=== PATIENT | female | born 1985 | race Caucasian/White ===

== ENCOUNTER 2023-08-18 14:29 | Inpatient (IN) | payer OTHER, SELFPAY ==
[2023-08-18] VITALS (24 sets, daily range): BP systolic 79–211; BP diastolic 50–146; BMI 20.3
--- NOTE | 2023-08-18 10:51 | ED.GENMED ---
Addendum entered and electronically signed by Ludin Swenson MD 08/18/23 15:48:
Patient became severely hypotensive bradycardic at the end of the echocardiogram. Diaphoretic. No chest pain or shortness of breath. Cardene has been stopped. Fluids were started wide open. Patient was lied prone. Symptoms slowly improved
while lying prone. Repeat EKG was a sinus bradycardia with A-V dissociation. Right bundle branch block. Diffuse T wave changes. EKG was sent to cardiology. Hospitalist also notified. Patient rechecked multiple times. Blood pressure last was
123/77. Heart rate still 60. Again no chest pain or shortness of breath.
additional CC=15 minutes
Addendum entered and electronically signed by GISSELLE Tracy 08/18/23 15:16:
Called to patient's room by nurse patient was found hypotensive bradycardic diaphoretic pale. Patient apparently started vomiting while echocardiogram was being done. Nifedipine drip was stopped by nurse prior to my arrival and patient was given
bolus of fluids. Patient was given Zofran blood pressure improving. ED physician called to bedside
Original Note:
History of Present Illness
<GISSELLE Tracy - Last Filed: 08/18/23 12:52>
General
Chief Complaint: Blood Pressure Problem
Source: patient
Exam Limitations: none
Time Seen by Provider: 08/18/23 10:49
Nursing documentation reviewed up to this point in time: agreed with
Travel History
Have you had any contact with someone who has COVID-19?: No
Do you have any symptoms of coronavirus? Fever > 100 degrees, chills, cough, shortness of breath, sore throat, loss of taste or smell, muscle aches, or headache?: No
History of Present Illness
History of Present Illness:
Patient is a 37-year-old female with history of of untreated hypertension resents to the ER for evaluation. Patient reports she has not felt right over the past several days. She reports on [place] she felt weak and felt just off. Since then she
has also noticed that her right arm feels slightly weaker her signatures often when she holds her coffee cup or a mug she feels some weakness. She reports her arm feels heavy. She did take her blood pressure because of the on Wednesday and it was
180/140 and it was also elevated yesterday. She has had no associated headache. she has a history of hypertension for years but has not taken her medicine in the past several years.
She denies any chest pain. At times she does feel short winded. This however is not new.
She is a smoker.
Past History
<GISSELLE Tracy - Last Filed: 08/18/23 12:52>
Past History
ED Past Medical History: HTN
ED Past Surgical History: Gynecological
Social History
Tobacco: Smoker
Alcohol: None
Drug: None
Personal: Single
Living: with family
Review of Systems
<GISSELLE Tracy - Last Filed: 08/18/23 12:52>
Review of Systems
Allergies reviewed?: Yes
All Other Systems: ROS reviewed and negative except as documented in HPI and ROS
Constitutional: Reports no symptoms; Denies fever, fatigue or chills
EENT: Reports no symptoms
Respiratory: Reports no symptoms
Cardiac: Reports no symptoms; Denies chest pain
ABD/GI: Reports no symptoms
Skin: Reports no symptoms
Neurological: Reports other (Right-sided weakness); Denies dizzy or headache
Psychiatric: Reports no symptoms
Phy Exam
<GISSELLE Tracy - Last Filed: 08/18/23 12:52>
General Physical Exam
General Presentation: no apparent distress
General age: appears stated age
General Skin: warm and dry
General Habitus: normal
General Mental: alert
Cardiovascular Exam
Cardiovascular Exam: regular rate/rhythm, normal peripheral pulses and tachycardia
Pulmonary Exam
Pulmonary Exam: lungs clear and no respiratory distress
Neurological Exam
Neurological Exam: alert and oriented x3
NIH Stroke Score
Level of Consciousness: 0 - Alert
LOC questions: 0-Answers both correctly
LOC Commands: 0-Performs both correctly
Best Gaze: 0-Normal
Visual Garcia: 0=Normal, no visual loss
Facial palsy: 0=Normal, symmetrical
Motor - Right Arm: 1=Drift < 10 seconds
Motor - Left Arm: 0=No drift 10 seconds
Motor - Right Le-No drift 5 seconds
Motor - Left Le-No drift 5 seconds
Limb Ataxia: 0-Absent
Sensation: 0-Normal
Best Language: 0-No aphasia
Dysarthria: 0-Normal
Extinction and Inattention: 0-No abnormality
Total Score:: 1
Robbi Coma Scale
Eye Opening: Spontaneous
Verbal Response: Oriented
Motor Response: Obeys Commands
GCS Total Score: 15
Musculoskeletal Exam
Musculoskeletal Exam: full ROM
Skin Exam
Skin Exam: normal color and warm/dry
Psychiatric Exam
Psychiatric Exam: normal mood/affect
<Ludin Swenson MD - Last Filed: 08/18/23 13:13>
NIH Stroke Score
Total Score:: 1
[place] Coma Scale
GCS Total Score: 15
Course
<GISSELLE Tracy - Last Filed: 08/18/23 12:52>
Orders/Labs/Results
Orders:
Orders
08/18/23 11:04
Electrocardiogram (*1) Stat
Reason for Study: Other
Other Reason for Exam: chest pain
CT Head W/o Iv Contrast Urgent
Comment:
Reason For Exam: right sided weakness
Cardiac Monitoring- Treatment ONCE
EKG- Treatment ONCE
IV Insert/Care/Rem.- Treatment PRN
08/18/23 11:09
Complete Blood Count/With Diff Urgent
Comprehensive Metabolic Panel Urgent
DDimer [D-Dimer] Urgent
HCG, Serum Qualitative Screen Urgent
Comment: ADDED
Troponin I Urgent
08/18/23 11:24
Nicardipine 40 mg/200 ml [Cardene] 40 mg in 200 ml IV NOW
Initial dose in mg/hr, then titrate:: 5
Titrate to keep:: BP < 180/105 mmHg
Titrate by mg/hr:: 2.5 mg/hr
Frequency of titrations (minutes):: 5-15 minutes
Maximum dose in mg/hr:: 15
Begin to taper infusion when:: Remained at goal for 2hrs
Taper by mg/hr:: 2.5 mg/hr
Frequency of taper (minutes) if patient maintains goal:: 15-30 minutes
Taper to off?: Yes
If infusion off & no longer maintaining goal:: Contact Provider
08/18/23 11:45
Add On- LAB Urgent
Tests Added?: hcg qualitative
08/18/23 12:32
Aspirin 325 mg PO NOW STA
Clopidogrel Bisulfate [Plavix] 300 mg PO NOW STA
NIH Stroke Scale As Directed
Directions: Per protocol
Neurological Checks As Directed
Frequency: Per unit guidelines
08/18/23 12:33
MA [place] [facility] Routine
Comment:
Reason For Exam: intracranial stenosis
Recent pill cam endoscopy?: No
MA Neck With Contrast Routine
Reason For Exam: stenosis
Recent pill cam endoscopy?: No
MR Brain Without Contrast Routine
Comment: Eval for left sided stroke or PRES
Reason For Exam: Right arm leg weakness, extreme HTN
Recent pill cam endoscopy?: No
08/18/23 13:01
Echo 2D MMode Color/Doppler Urgent
Reason for Study: hypertensive emergency
08/18/23 13:07
CARDIOLOGY CONSULT Routine
Consulting Provider: Sage Way
Was physician already notified: Yes
Reason for consult: LVH, hypertensive emergency
NEUROLOGY CONSULT Routine
Consulting Provider: Sharif Bui
Was physician already notified: Yes
Reason for consult: RUE weakness
08/19/23 08:00
Aspirin Low Dose EC [Aspir Low (Enteric Coated)] 81 mg PO DAILY
Clopidogrel Bisulfate [Plavix] 75 mg PO DAILY
Abnormal Lab Results
08/18/23
11:09
RBC 5.67 H 10^6/uL
(4.20-5.40)
MCV 72.0 L fL
(81.0-99.0)
MCH 22.9 L pg
(27.0-31.0)
MCHC 31.9 L g/dL
(33.0-37.0)
RDW 17.7 H %
(11.5-14.5)
Plt Count 465 H 10^3/uL
(130-400)
Absolute Monos (auto) 0.8 H 10^3/uL
(0.1-0.6)
BUN 18 H mg/dl
(7-17)
Total Protein 6.1 L g/dl
(6.3-8.2)
08/18/23 11:09
08/18/23 11:09
Vital Signs
Initial and Last Documented VS:
Initial Vital Signs
Temp Pulse Resp BP Pulse Ox
98.3 F 110 18 211/140 98
08/18/23 10:41 08/18/23 10:41 08/18/23 10:41 08/18/23 10:41 08/18/23 10:41
Last Documented Vital Signs
Temp Pulse Resp BP Pulse Ox
98.3 F 107 26 172/118 98
08/18/23 10:41 08/18/23 12:45 08/18/23 12:45 08/18/23 12:15 08/18/23 10:41
Gaming Dealer consulted with Physician
Gaming Dealer consulted with physician?: Yes
Name of Physician Consulted: Messi
<Ludin Swenson MD - Last Filed: 08/18/23 13:13>
Orders/Labs/Results
Orders:
Orders
08/18/23 11:04
Electrocardiogram (*1) Stat
Reason for Study: Other
Other Reason for Exam: chest pain
CT Head W/o Iv Contrast Urgent
Comment:
Reason For Exam: right sided weakness
Cardiac Monitoring- Treatment ONCE
EKG- Treatment ONCE
IV Insert/Care/Rem.- Treatment PRN
08/18/23 11:09
Complete Blood Count/With Diff Urgent
Comprehensive Metabolic Panel Urgent
DDimer [D-Dimer] Urgent
HCG, Serum Qualitative Screen Urgent
Comment: ADDED
Troponin I Urgent
08/18/23 11:24
Nicardipine 40 mg/200 ml [Cardene] 40 mg in 200 ml IV NOW
Initial dose in mg/hr, then titrate:: 5
Titrate to keep:: BP < 180/105 mmHg
Titrate by mg/hr:: 2.5 mg/hr
Frequency of titrations (minutes):: 5-15 minutes
Maximum dose in mg/hr:: 15
Begin to taper infusion when:: Remained at goal for 2hrs
Taper by mg/hr:: 2.5 mg/hr
Frequency of taper (minutes) if patient maintains goal:: 15-30 minutes
Taper to off?: Yes
If infusion off & no longer maintaining goal:: Contact Provider
08/18/23 11:45
Add On- LAB Urgent
Tests Added?: hcg qualitative
08/18/23 12:32
Aspirin 325 mg PO NOW STA
Clopidogrel Bisulfate [Plavix] 300 mg PO NOW STA
NIH Stroke Scale As Directed
Directions: Per protocol
Neurological Checks As Directed
Frequency: Per unit guidelines
08/18/23 12:33
MA [place] [facility] Routine
Comment:
Reason For Exam: intracranial stenosis
Recent pill cam endoscopy?: No
MA Neck With Contrast Routine
Reason For Exam: stenosis
Recent pill cam endoscopy?: No
MR Brain Without Contrast Routine
Comment: Eval for left sided stroke or PRES
Reason For Exam: Right arm leg weakness, extreme HTN
Recent pill cam endoscopy?: No
08/18/23 13:01
Echo 2D MMode Color/Doppler Urgent
Reason for Study: hypertensive emergency
08/18/23 13:07
CARDIOLOGY CONSULT Routine
Consulting Provider: Sage Way
Was physician already notified: Yes
Reason for consult: LVH, hypertensive emergency
NEUROLOGY CONSULT Routine
Consulting Provider: Sharif Bui
Was physician already notified: Yes
Reason for consult: RUE weakness
08/19/23 08:00
Aspirin Low Dose EC [Aspir Low (Enteric Coated)] 81 mg PO DAILY
Clopidogrel Bisulfate [Plavix] 75 mg PO DAILY
Abnormal Lab Results
08/18/23
11:09
RBC 5.67 H 10^6/uL
(4.20-5.40)
MCV 72.0 L fL
(81.0-99.0)
MCH 22.9 L pg
(27.0-31.0)
MCHC 31.9 L g/dL
(33.0-37.0)
RDW 17.7 H %
(11.5-14.5)
Plt Count 465 H 10^3/uL
(130-400)
Absolute Monos (auto) 0.8 H 10^3/uL
(0.1-0.6)
BUN 18 H mg/dl
(7-17)
Total Protein 6.1 L g/dl
(6.3-8.2)
08/18/23 11:09
08/18/23 11:09
Vital Signs
Initial and Last Documented VS:
Initial Vital Signs
Temp Pulse Resp BP Pulse Ox
98.3 F 110 18 211/140 98
08/18/23 10:41 08/18/23 10:41 08/18/23 10:41 08/18/23 10:41 08/18/23 10:41
Last Documented Vital Signs
Temp Pulse Resp BP Pulse Ox
98.3 F 107 26 172/118 98
08/18/23 10:41 08/18/23 12:45 08/18/23 12:45 08/18/23 12:15 08/18/23 10:41
<GISSELLE Tracy - Last Filed: 08/18/23 12:52>
MDM/Problems Addressed
Differential Diagnosis Includes:
Not limited to hypertensive urgency stroke
MDM/Problems Addressed:
Patient is a 29-year-old female with untreated hypertension for years who presents to the ER for evaluation of elevated blood pressure and right-sided weakness. For the past several days patient has noticed that her right arm seem very heavy she
had difficulty opening a door holding a coffee mug and writing her signature. She denies any headache. She presents hypertensive mildly tachycardic no complaints of chest pain mildly short of breath off and on. Patient is a smoker. No known
cardiac history. Patient currently does not have a family doctor and as document has not taken medication for blood pressure in years. She presents awake alert by ED physician slight questionable drift in right upper extremity. Patient has
changes on EKG including new LVH and a new left bundle branch block. Patient was eval by ED physician and spoke with cardiology as well as nephrology and nifedipine IV was recommended and started. I did review case with neurology Dr. Ramya duron
ordered if neg will start aspirin Plavix.
1250: CT negative aspirin Plavix ordered by neurology who evaluated patient
Chronic conditions affecting care:
Untreated hypertension, smoker
<GISSELLE Tracy - Last Filed: 08/18/23 12:52>
*Radiology
Radiology exam reviewed: radiology read reviewed
*Pulse Oximetry
Patient hypoxic: no
*EKG
Interpreted by ED Provider?: Yes
Interpretation: abnormal
Comparison EKG: changes noted
Heart Rate: 93
Rate: normal
Rhythm: sinus
[place]: left axis deviation
QRS Pattern: left bundle branch block and left vent hypertrophy
Ischemia: no ischemia
*Critical Care Note
Total Time (30-74mins, 75-104mins- exclusive of procedures): Not Applicable
comment:
Critical care statement: A total of 30 minutes of critical care time was provided for this patient. This includes management of unstable vital signs, evaluation of the patient at bedside, reviewing the patient's pertinent medical records, discussion
with consultants, review of old EKGs and review of pertinent medical records. This time with separate from time utilized to perform the aforementioned documented procedures
<GISSELLE Tracy - Last Filed: 08/18/23 12:52>
Patient Management
Discussion with other providers: Plant Clerk (Neurology cardiology and nephro)
ED Attending Note
<GISSELLE Tracy - Last Filed: 08/18/23 12:52>
-
Portions of this chart may have been created with voice recognition software.� Occasional wrong word or��sound alike� substitutions may have occurred due to the inherent limitations of voice recognition software.
<Ludin Swenson MD - Last Filed: 08/18/23 13:13>
ED Attending Note
Patient seen and examined by attending physician: Yes
I performed the substantive portion of visit, reviewed & personally made and approve the management plan that is documented in note by myself or DAIVD.: Yes
ED Attending Note:
37-year-old female major complaint is some incoordination and weakness of the right arm x 2 days. No headache no visual issues no speech issues no gait issues. No history of same. Patient has a history of hypertension but is not compliant with
medications.
On exam patient is nontoxic in no distress. Significant hypertension. Borderline tachycardia. Speech normal. Questionable minimal right facial droop. Slight right arm drift. Minimal poor [id number] on the right. The rest of the neurologic
exam is unremarkable.
Heart regular rate and rhythm borderline tachycardia. Lungs clear and equal. She is warm and dry and perfusing well.
Impression is hypertensive emergency with symptoms consistent with a recent CVA. In addition new left bundle branch block and significant left ventricular hypertrophy by EKG. Discussed with cardiology and neurology. Cardene drip started. If the
head CT is negative we will start aspirin and Plavix. Admission for further care. Lengthy discussion with the patient
Critical care:45
Discharge Plan
Departure
Patient Disposition: Admit
Date of Disposition: 08/18/23
Time of Disposition: 12:51
Admit to: ICU
Admit to doctor: Osiris
Presentation/result/management discussed w/ accepting MD/DO: Hospitalist
Patient with high blood pressure during this ER visit?: Yes
Condition: Fair
Covid-19: Not Applicable
Discharge Problem:
Hypertensive emergency
Prescriptions:
No Action
acetaminophen [Tylenol Extra Strength] 500 mg Tablet
1,000 mg PO Q6HPRN PRN (Reason: mild pain)
Referrals:
Sabino Davis MD [Family Provider] -
Interventions
Interventions:
*Risk Screen - Suicide Last Done: 08/18/23 10:41
*General Assessment Last Done: 08/18/23 10:41
*Neglect/Abuse Screening Last Done: 08/18/23 10:41
ED- Fall Risk Assessment Last Done: 08/18/23 11:02
*ED COVID-19 Vaccine History Last Done: 08/18/23 10:59
ED- Cardiac Assessment Last Done: 08/18/23 11:02
ED- Neurological Assessment Last Done: 08/18/23 11:02
ED- Pulmonary Assessment Last Done: 08/18/23 11:02
Discharge Date and Time
Print Language: ALBANIAN
[2023-08-18 11:26] LABS: % Eosinophils 0.7 % (0-6); % Immature Granulocytes 0.2 % (0-0.5); % Lymphocytes 25.5 % (20.5-51.1); % Monocytes 8.3 % (1.7-9.3); % Neutrophils 64.3 % (42.2-75.2); Absolute Basophils 0.1 10^3/uL (0-0.2); Absolute Eosinophils 0.1 10^3/uL (0-0.7); Absolute Lymphocytes 2.3 10^3/uL (1.2-3.4); Absolute Monocytes 0.8 10^3/uL (0.1-0.6); Absolute Neutrophils 5.8 10^3/uL (1.4-6.5); Hematocrit 40.8 % (37.0-47.0); Mean Corp Hgb Conc. 31.9 g/dL (33.0-37.0); Mean Corpuscular Hgb 22.9 pg (27.0-31.0); Mean Platelet Volume 9.6 fL (7.4-10.4); Nucleated Red Blood Cells % 0 %; Platelet Count 465 10^3/uL (130-400); Red Blood Cell Count 5.67 10^6/uL (4.20-5.40); Red Cell Dist. Width 17.7 % (11.5-14.5)
[2023-08-18] MEDS: CARDENE 200 IV (11:32)
[2023-08-18 11:33] LABS: D-Dimer 0.31 ug/mlFEU (0.00-0.50)
--- NOTE | 2023-08-18 11:34 | CON.NEURO4 ---
Consultation - Neurology 4
-
CONSULTING PHYSICIAN: Pacheco Bui
REFERRING PHYSICIAN: ER
DICTATED BY: Pacheco Bui
DATE/TIME OF REQUEST: 08/18/23
DATE/TIME OF CONSULTATION: 08/18/23
Reason for Consultation: Hypertension, right arm weakness
History of Present Illness:
The patient is a right handed 37-year-old woman with past medical history of uncontrolled hypertension presenting the hospital with right arm and leg weakness beginning on Wednesday afternoon along with feeling unwell in general. Blood pressure was
elevated at home to range of 180/140. Chest pain or dyspnea. Not taking blood pressure medications. She had been on aspirin during previous but does not take this is a chronic medication.
The weakness of the right arm and unusual feeling began suddenly on Wednesday afternoon. She had woken up that morning feeling fine. Describes the right arm is feeling like it is underwater and somewhat weak and incoordinated not feeling normal. Has
had no changes in speech or vision or numbness on the face. Has similar degree of unusual feeling in the right leg. No recent head or neck trauma and no similar instances of similar issues. Has had a history of headaches in the past presented to
the ER for these in general was found to have high blood pressure.
Past Medical History: Essential hypertension, ectopic
Surgical History: Left sided tubal ligation with ectopic , right tubal ligation
Family History: Father with hypertension
Social History: Lives with her and child, tobacco use 1 pack per day, no alcohol use, has medical marijuana card
Allergies: No known drug allergies
Review of Symptoms:
Patient denies any fever, headache, chest pain, shortness of breath, GI or symptoms.
Physical Exam:
Middle-aged woman mildly anxious no signs of head or neck trauma eyes are clear oropharynx is clear, no rashes seen scattered skin lesions on the legs and arms, neck with no masses full range of motion no meningismus, heart rate tachycardic,
breathing unlabored abdomen soft nontender no lower extremity edema seen
Neurologic Examination:
The patient is awake, alert and oriented x 3, appropriate mental status and conversation. She is able to follow commands and answer questions appropriately. Normal attention. No neglect. Good memory recall. There is no aphasia or dysarthria. On
cranial nerve assessment, pupils are 3 mm bilateral, round and reactive to light and accommodation. Visual garcia are full. Extraocular movements are intact. Facial sensations are intact and bilaterally symmetrical, there is no facial asymmetry.
Hearing is intact bilaterally to normal conversation volume. Tongue palate and uvula are midline. Sternocleidomastoid strengths are full bilaterally. Motor strengths are 5/5 bilateral upper and lower extremities on medical research Redford scale.
Very minor degree of right arm drift. Deep tendon reflexes are 2+ bilateral upper and lower extremities and Babinski is absent bilaterally. Intact to light touch and symmetric on arms and legs bilaterally. There was no extinction noted on double
simultaneous stimulation. Coordination is intact by finger to nose bilaterally.
Neuro Imaging: CT head non contrast no hemorrhage, no masses or edema, no acute infarct, no findings suggestive of PRES
Impressions
1. Right-sided arm and leg weakness of approximately 2 days duration accompanying extremely high blood pressure in the 210 systolic range on initial ER vital signs check. Given asymmetric weakness and sensory change an ischemic stroke on the
left side of the brain is fairly likely. Purely hypertension based neurologic symptoms is also possible but generally does not present with focal motor/sensory symptoms. Presumed to have baseline uncontrolled hypertension.
2. Essential hypertension, untreated
3. Tobacco use
4.
Patient has the following risk factors for their symptoms: Uncontrolled hypertension, tobacco use
Outside the time window for any thrombolytic based on greater than 4 and half hours since onset of neurologic symptoms and no signs indicate a large vessel occlusion would not be an IAT candidate
Recommendations:
1. Gradual lowering of blood pressure 10 to 20% less than the 211 systolic observed in the ER has been achieved. Is on nicardipine. For next 24 hours would aim for between 160-185 for systolic blood pressure.
2. Avoid rapid normalization of BP
3. Give aspirin 325 mg and clopidogrel 300 mg both now. Start aspirin 81 mg and Clopidogrel 75 mg tomorrow
4. Neurologic checks and NIH scales
5. Check MRI of the brain, MRA of the head and neck
6. Follow renal function
7. Cardiac telemetry
8. Education on tobacco cessation and importance of control of hypertension
9. Check lipid panel and HbA1c
10. Monitor for chest pain or dyspnea
Will follow
Discussed patient care with: Patient, ER
NIH Stroke Score
Subsequent NIH Scale
Date of Subsequent NIH Scale: 08/18/23
Time of Subsequent NIH Scale: 12:40
NIH Stroke Score
Level of Consciousness: 0 - Alert
LOC Questions: 0-Answers both correctly
LOC Commands: 0-Performs both correctly
Best Horizontal Gaze: 0-Normal
Visual Garcia: 0=Normal, no visual loss
Facial Palsy: 0=Normal, symmetrical
Motor - Right Arm: 1=Drift < 10 seconds
Motor - Left Arm: 0=No drift 10 seconds
Motor - Right Le-No drift 5 seconds
Motor - Left Le-No drift 5 seconds
Limb Ataxia: 0-Absent
Sensation: 0-Normal
Best Language: 0-No aphasia
Dysarthria: 0-Normal
Extinction and Inattention: 0-No abnormality
Total Score:: 1
Home Medications
-
Home Medications
Baby Aspirin 1 PO DAILY 04/30/20
Labetalol 300 mg PO BID 04/30/20
Vitamin Tablet 1 tab PO DAILY 04/30/20
Procardia 10 mg PO DAILY 04/30/20
Allergies
-
Allergies
Allergy/AdvReac Type Severity Reaction Status Date / Time
No Known Allergies Allergy Verified 08/18/23 10:46
Vital Signs / Labs
-
Vital Signs and Labs:
Temp Pulse Resp BP Pulse Ox
98.3 F 90 19 184/137 98
08/18/23 10:41 08/18/23 11:15 08/18/23 11:00 08/18/23 11:12 08/18/23 10:41
08/18/23 11:09
08/18/23 11:09
08/18/23
11:09
RBC 5.67 H
MCV 72.0 L
MCH 22.9 L
MCHC 31.9 L
RDW 17.7 H
Plt Count 465 H
Absolute Monos (auto) 0.8 H
BUN 18 H
Total Protein 6.1 L
[2023-08-18 11:35] LABS: ALT (SGPT) 22 U/L (0-35); AST (SGOT) 25 U/L (14-36); Albumin 3.7 g/dl (3.5-5.0); Alkaline Phosphatase 76 U/L (38-126); Blood Urea Nitrogen 18 mg/dl (7-17); Calcium 9.6 mg/dl (8.4-10.2); Carbon Dioxide 22 mmol/L (22-30); Chloride 104 mmol/L (98-107); Estimated Creatinine Clearance 70 ml/min; Glucose 86 mg/dl (70-99); Potassium 3.5 mmol/L (3.5-5.1); Sodium 135 mmol/L (135-145); Total Bilirubin 0.5 mg/dl (0.2-1.3); Total Protein 6.1 g/dl (6.3-8.2); eGFR > 60.00
[2023-08-18] MEDS: ASPIRIN 325 MG PO (12:40)
[2023-08-18] MEDS: PLAVIX 300 MG PO (12:40)
[2023-08-18 13:06] LABS: HCG, Serum Qualitative Screen Negative
--- NOTE | 2023-08-18 13:27 | HPS.HSE ---
Family Physician
-
Family Physician: Sabino Davis
Chief Complaint
-
RUE weakness
History of Present Illness
37 y/o F with PMHx essential hypertension who presents with a chief complaint of right upper extremity weakness. Patient's symptoms began 2 days ago and she describes her symptoms as feeling as if her right upper extremity is underwater. She says
her symptoms have improved since she came to the hospital. She is also felt generally unwell. She denies any chest pain, shortness of breath, palpitations (although she mentioned to the ER AP that she has had SOB). Denies headache. She also took
her blood pressure yesterday and it was 180/140. She notes that she has had essential hypertension since 2006. She was last seen by Dr. Johnson in 2020. She has not been on antihypertensives since that visit. Denies any other acute symptoms.
Medical History
Past Medical History
Past Medical History: Reports Other (as per HPI)
Past Surgical History: Reports Other (N/A)
Social History
Tobacco: Smoker
Alcohol: None
Drug: None
Family History
Family History: Not pertinent
Allergies / Home Medications
Allergies reflects when Allergies were last updated in [facility].
Home Medications with original date entered in [facility]
Allergy/Medication List:
Allergies
Allergy/AdvReac Type Severity Reaction Status Date / Time
No Known Allergies Allergy Verified 08/18/23 10:46
Home Medications
acetaminophen 500 mg tablet (Tylenol Extra Strength) 1,000 mg PO Q6HPRN PRN mild pain 08/18/23
Review of Systems
-
History Source: Patient
A 12 point ROS was completed and negative except as noted: Yes
Physical Exam
Vital Signs
Vital Signs
Temp Pulse Resp BP Pulse Ox
98.3 F 107 26 172/118 98
08/18/23 10:41 08/18/23 12:45 08/18/23 12:45 08/18/23 12:15 08/18/23 10:41
Physical Exam
General: Other (.)
Laboratory Results
-
08/18/23 11:09
08/18/23 11:09
Laboratory Results
Total Bilirubin 0.5 mg/dl (0.2-1.3) 08/18/23 11:09
AST 25 U/L (14-36) 08/18/23 11:09
ALT 22 U/L (0-35) 08/18/23 11:09
Alkaline Phosphatase 76 U/L (38-126) 08/18/23 11:09
Troponin I 0.030 ng/ml 08/18/23 11:09
Impression/Plan
-
Gen: NAD, AAOx3.
Eyes: EOMI, PERRLA, no scleral icterus.
Neck: supple.
CV: tachy, reg rhythm, +S1/S2, no m/r/g.
Resp: CTAB, no rales, wheezes, or rhonchi.
Abd: +BS, soft, NT, ND
Skin: No rashes.
Neuro: CN 2-12 intact, non-focal.
Psych: Normal mood and affect.
CT Brain: No acute intracranial abnormality.
Hypertensive emergency:
-Nicardipine drip started in the ER, goal SBP<185, DBP<105
-start Procardia XL 30mg and lisinopril 10mg to bridge off gtt. of note, I did discuss that antihypertensive medications may not be safe for breast-feeding. Specifically lisinopril has not been studied in breast-feeding. The patient reports to me
that her child is 3 years old and the breast-feeding is a habit at this point and that she will stop having the patient breast-feed.
-check echocardiogram
-check UDS
-discussed with cardiology
RUE weakness:
-ASA/Plavix given, cont
-cont ASA, check FLP/a1c
-check MRI/A head neck
-Monitor on telemetry
-Check echocardiogram
-neurochecks
-neuro c/s
-stroke pathway
Pt reports to me that she plans on leaving [facility].
FULL/Lovenox
Total critical care time spent = 60 min
--- NOTE | 2023-08-18 13:53 | CON.CAR ---
Addendum entered and electronically signed by Calvin Napier MD 08/18/23 15:05:
I saw and examined the patient.
The CIVIL SERVICE CLERK's note was reviewed and I agree with the note.
Comment: 37 y/o female with HTN and tobacco abuse who is here for evaluation after she noted right arm and leg weakness starting on Wednesday, and general unwell feeling. BP was elevated 180/140 on home check per chart, we are consulted for HTN.
- agree with nicardipine drip
- restart home BP meds over next 24 hrs
Original Note:
Consultation
Consultation Request
Date/Time Consultation Requested: 08/18/23 1307
Date/Time Consultation Performed: 08/18/23 1350
Requesting Provider: Dr. Newell
Performing Provider: Isabelle PITTS for Dr. Napier
Reason for Consultation: hypertensive emergency
Medical History
-
Chief Complaint: right-sided weakness
History of Present Illness:
37 y/o female with HTN and tobacco abuse who is here for evaluation after she noted right arm and leg weakness starting on Wednesday, and general unwell feeling. BP was elevated 180/140 on home check per chart. She is here for evaluation. Head CT was
negative. MRI is pending. Stroke is suspected per neurology. ASA/Plavix initiated. BP is severely elevated on arrival 211/140. She is now on nicardipine gtt with plan to bring it down gradually. EKG shows new LBBB. In past, she was on labetalol,
HCTZ, and Procardia- even methyldopa at one point (but that became unavailable). She stopped her BP meds on her own. She really only focuses on BP management during . Of note, she does report she is currently her child.
Past Medical History
Past Medical History: HTN
Social History
Tobacco: Smoker
Family History
Family History: Hypertension (dad )
Allergies / Home Medications
Allergy/AdvReac Type Severity Reaction Status Date / Time
No Known Allergies Allergy Verified 08/18/23 10:46
�Medication �Instructions �Recorded �Confirmed �Type
acetaminophen 500 mg tablet 1,000 mg PO Q6HPRN PRN mild pain 08/18/23 08/18/23 History
(Tylenol Extra Strength)
Review of Systems
-
History Source: Patient
All other systems: Negative unless noted
Constitutional: Other (general feeling unwell)
Neurological: Other (right sided weakness)
Physical Exam
Vital Signs
Temp Pulse Resp BP Pulse Ox
98.3 F 107 26 172/118 98
08/18/23 10:41 08/18/23 12:45 08/18/23 12:45 08/18/23 12:15 08/18/23 10:41
Lab Results
08/18/23 11:09
08/18/23 11:09
Troponin I 0.030 ng/ml 08/18/23 11:09
Physical Exam
General: Well Developed and No Apparent Distress
HEENT: Normocephalic and Anicteric
Respiratory: Clear and Non Labored Respirations
Cardiac: Regular Rhythm
Neuro: AO x 3
Psych: Calm
Impression / Plan
-
Hypertensive emergency:
-on nicardipine gtt- requires intensive monitoring. Also ACEI and Procardia ordered to start PO. However, patient reports she is currently her child, so will hold off on ACEI- Discussed with Dr. Newell.
-plan for hypertensive goals per neuro in setting of likely stroke- For next 24 hours would aim for between 160-185 SBP per neuro.
Right-sided weakness:
-patient noticing improvement
-likely stroke per neuro
-ASA, Plavix started, lipids and hgbA1C pending
-MRI is pending
LBBB:
-new
-check echo
-follow telemetry
Tobacco abuse:
-recommend cessation
Data Reviewed
-
EKG: Tracing Personally Visualized and interpreted (SR with LBBB)
CT Scan: Report Reviewed by me (head CT: No acute intracranial abnormality.)
Medical Tests (Nuc Med, Echo etc): Other (echo ordered)
Labs: Labs Reviewed by me
[2023-08-18] MEDS: ZOFRAN 4 MG IV (15:09)
--- NOTE | 2023-08-18 15:47 | EDRN ---
Reports called to IMU. Admission order for IMU conformed by Dr Newell. See pt latha note regarding cardene stopped due to near-syncopal event with hypotension.
[2023-08-18] MEDS: LIPITOR 40 MG PO (17:23)
[2023-08-18] MEDS: LOVENOX 40 MG SC (17:23)
[2023-08-18 18:50] LABS: Amphetamines Negative (Negative); Barbiturates Negative (Negative); Benzodiazepines Negative (Negative); Buprenorphine Negative (Negative); Cocaine Negative (Negative); Marijuana Positive (Negative); Methadone Negative (Negative); Methamphetamines Negative (Negative); Opiates Negative (Negative); Phencyclidine Negative (Negative); Tricyclic Antidepressants Negative (Negative)
[2023-08-19] VITALS (22 sets, daily range): BP systolic 151–189; BP diastolic 102–143; PULSE 78–97; O2SAT 97–98
[2023-08-19 04:31] LABS: Blood Urea Nitrogen 16 mg/dl (7-17); Calcium 9.6 mg/dl (8.4-10.2); Carbon Dioxide 22 mmol/L (22-30); Chloride 105 mmol/L (98-107); Estimated Creatinine Clearance 70 ml/min; Glucose 89 mg/dl (70-99); HDL Cholesterol 38 mg/dl; LDL Cholesterol, Calculated 122 mg/dl; Potassium 3.7 mmol/L (3.5-5.1); Sodium 137 mmol/L (135-145); Total Cholesterol 190 mg/dl (50-199); Triglyceride 154 mg/dl (10-149); Very Low Density Lipoprotein 30 mg/dl (0-30); eGFR > 60.00
--- NOTE | 2023-08-19 05:59 | PTCARENOTE ---
No acute events overnight. NIH of 1 for slight right arm drift. Permissive HTN overnight maintained. Patient anxious to leave.
[2023-08-19] MEDS: ASPIR LOW (ENTERIC COATED) 81 MG PO (07:09)
[2023-08-19] MEDS: APRESOLINE 5 MG IV ×2 (07:09→23:01)
[2023-08-19] MEDS: PLAVIX 75 MG PO (07:09)
--- NOTE | 2023-08-19 08:19 | W.PN.NEURO.1 ---
Today's Communication / Plan
-
-Blood pressure monitoring and control, suggest a goal between 140-180 systolic blood pressure for today
-Avoid rapid normalization of blood pressure given longstanding untreated hypertension
-Neurologic checks and NIH scales
-Cardiac telemetry
-Not recommending SHY or LINQ
-Aspirin and clopidogrel DAPT therapy for 21 days, end date of clopidogrel 09/06 and continue on lifelong aspirin
-Start Atorvastatin 20 mg daily goal LDL less than 70 moving forward
-PT/OT speech therapies
-NIH and neurologic checks
Will follow
Neuro Assessment/Plan
Assessment
37 year old woman with tobacco use and uncontrolled hypertension presenting to hospital with extreme hypertension, right arm and leg weakness of 2 day duration.
MRI brain demonstrates acute ischemic stroke in the left side of the cassi explaining her symptoms
MRA head and neck no significant large vessel stenosis or atherosclerosis seen in vertebral or basilar artery supply to cassi, no significant carotid disease
TTE was limited but no thrombus, normal chamber size, mildly decreased systolic function
Stroke etiology is presumed due to small vessel disease risk factors of tobacco use and longstanding untreated hypertension
Subjective/Objective
Subjective Data
Date of Service: August 19, 2023
No acute events, right arm is feeling better, no headache chest pain or dyspnea. Discussed BP control, medications, smoking cessation.
Objective Data
Vital Signs
Temp Pulse Resp BP Pulse Ox
98.7 F 78 22 173/124 96
08/19/23 07:32 08/19/23 06:26 08/19/23 06:26 08/19/23 06:26 08/19/23 06:26
Lab Results
08/18/23 11:09
08/19/23 03:04
Sodium 137 mmol/L (135-145) 08/19/23 03:04
Potassium 3.7 mmol/L (3.5-5.1) 08/19/23 03:04
BUN 16 mg/dl (7-17) 08/19/23 03:04
Glucose 89 mg/dl (70-99) 08/19/23 03:04
Calcium 9.6 mg/dl (8.4-10.2) 08/19/23 03:04
LDL Cholesterol, Calc 122 mg/dl 08/19/23 03:04
Ur Buprenorphine Negative (Negative) 08/18/23 18:30
Patient Allergies
No Known Allergies Allergy (Verified 08/18/23 10:46)
LDL Level: >70, statin ordered
Review of Systems
-
History Source: Patient
All other systems: Reviewed and negative
Constitutional: No Symptoms
EENT: No Symptoms Reported
Respiratory: No Symptoms
Cardiac: No Symptoms
Abdomen/GI: No Symptoms
Genitourinary: No Symptoms
Musculoskeletal: No Symptoms
Skin: No Symptoms
Neuro: Weakness and Numbness
Endocrine: No Symptoms
Hematologic / Lymphatic: No Symptoms
Allergy / Immunology: No Symptoms
Physical Exam
-
General: No Apparent Distress
Eyes: No Ptosis
HEENT: Normocephalic
Neck: No Bruits Bilaterally
Respiratory: Clear to Auscultation
Cardiac: Regular Rhythm
GI: Normal Bowel Sounds
Skin: Unremarkable
Extremities: No Clubbing
Psych: Intact Judgement/Insight; Negative Confused or Agitated
Extended Neurological Exam
Mood & Affect: Mood Unremarkable and Affect Unremarkable
Attention Span & Concentration: Awake
Memory: Unremarkable
Tremor: Hand Tremor Absent
Involuntary Movement: None
Speech: Quality Unremarkable and Quantity Unremarkable
Cranial Nerve II: Left Eye: Pupillary Reactivity Unremarkable and Pupillary Size Unremarkable
Cranial Nerve II: Right Eye: Pupillary Reactivity Unremarkable and Pupillary Size Unremarkable
Cranial Nerves III, IV, : Extraocular Movement: Extraocular Movement Full in all Directions
Muscle Strength, Overall: Full Throughout
Pronator Drift: No Drift in Upper Extremities
Deep Tendon Reflexes: Trace Throughout
Coordination: [id number] Testing Unremarkable and Other (Normal fine finger movements and hand movements no asymmetry seen on right hand on today's exam)
Data Reviewed
-
CT Head: Report Reviewed and Image Reviewed
MRI Head: Report Reviewed and Image Reviewed
MRA Head: Report Reviewed and Image Reviewed
MRA Neck: Report Reviewed and Image Reviewed
Echocardiogram: Report Reviewed
Labs: Report Reviewed
Lipid Profile: Report Reviewed
HgbA1C: Pending
--- NOTE | 2023-08-19 08:48 | CON.MD ---
Consultation - Medical
-
Referring Provider: Dr. Melvin Newell
Chief Complaint: Stroke
History of Present Illness: 37-year-old female with PMH (as below) presented to [facility] on 08/18/2023 with right upper extremity weakness for 2 days. Found with a blood pressure of 180/140, has history of hypertension since 2006, not on
antihypertensives. CT of the head without acute concern. Of note she is still breast-feeding her 3-year-old child but notes that she will stop at this point. Required nicardipine drip for blood pressure control. MRI of the brain noting a
left pontine infarct. Started on dual antiplatelet therapy 08/18/2023. Overall the right sided weakness has resolved. Denies any numbness, tingling, weakness, vision, or swallowing concerns.
Past Medical History: Essential HTN, Ectopic
Procedure History: Left-sided tubal ligation with ectopic , right tubal ligation
Family History: Father with hypertension
Social History:
Functional Level Premorbidly: Independent with all activities
Functional Level Currently:�� Within normal limits for ADLs. Mod I with bed mobility, transfers and functional mobility in room to bathroom without assistive device. Ambulated 200 feet without device independently and no loss of balance.
Tobacco: smoking 1 pack/day
Alcohol: Denies
Drug use: has medical marijuana card
Lives with: and child
24-hour assistance available: No
Number of floors: 2
# steps to enter: 0
# steps to second floor: 5+5
Potential First floor set up: No
Driving: Yes
Occupation: Not working
Allergies:
Allergy/AdvReac Type Severity Reaction Status Date / Time
No Known Allergies Allergy Verified 08/18/23 10:46
Review of Systems:
Constitutional: (x) abNormal _fatigue
Eye: (x) Normal _
Ear/Nose/Throat: (x) Normal _
Respiratory: (x) Normal _
Cardiovascular: (x) Normal _
Gastrointestinal: (x) Normal _
Genitourinary: (x) Normal _
Musculoskeletal: (x) Normal _
Integumentary: (x) Normal _
Neurologic: (x) abNormal _ Stroke with right-sided weakness
Psychiatric: (x) Normal _
Endocrine: (x) Normal _
Hematologic/Lymphatic: (x) Normal _
Allergic/Immunologic: (x) Normal _
Medications:
Active Current Visit Medication List
Category Date Time Status
Acetaminophen [Tylenol/Feverall] Med 08/18/23 16:08 Active
650 mg RECTAL Q4HPRN PRN
Acetaminophen [Tylenol] Med 08/18/23 16:08 Active
650 mg PO Q4HPRN PRN
Aspirin Low Dose EC [Aspir Low (Enteric Coated)] Med 08/19/23 08:00 Active
81 mg PO DAILY
Atorvastatin [Lipitor] Med 08/18/23 18:00 Active
40 mg PO QPM
Clopidogrel Bisulfate [Plavix] Med 08/19/23 08:00 Active
75 mg PO DAILY
Enoxaparin Sodium [Lovenox] Med 08/18/23 18:00 Active
40 mg SC QPM
Flush (0.9% Sodium Chloride) [Flush (Nss)] Med 08/18/23 17:00 Active
See Dose Instructions IV PER PROTOCOL
Vitals:
Temp Pulse Resp BP Pulse Ox
98.7 F 78 22 173/124 96
08/19/23 07:32 08/19/23 06:26 08/19/23 06:26 08/19/23 06:26 08/19/23 06:26
Height 5 ft 3 in
Actual Weight 52 kg
Body Mass Index (BMI) 20.3
Physical Exam:
General Appearance/Observation: Well-developed, well-nourished female in no apparent distress.
Pain/Comfort Assessment: Denies
Mood/Affect: Appropriate
Integumentary/Operative Site: No lesions noted during course of exam
Eyes: Conjunctiva/Lids: normal ��� Pupils: pupils equal round and reactive to light and Accommodation
Ears/Nose/Throat: oral mucosa moist,� throat clear.������������ Lips/Teeth/Gums: Poor dentition
Cardiovascular: Heart: regular, no murmur
Pulses: dorsalis pedis 2+ bilaterally
Respiratory: Respiratory Effort/Chest Expansion: normal ������ Auscultation: Clear to auscultation bilaterally
Gastrointestinal: abdomen not tender, no distension, normal abdominal bowel sounds
Genitourinary: No Jolly
Extremities: Edema: None Cyanosis: None Trophic changes: None
Neurology Exam:
Orientation: Alert, Oriented to self, Time, Place
Memory: Intact for recent medical concerns
Comprehension: Intact
Two step command: Intact
Cranial Nerves:
�� CNII: Pupillary light reflex: Intact��� Visual Field: Intact
�� CN III, IV, : Extraocular muscles: Intact
�� CN V: Facial Sensation at Forehead: Intact, Maxilla: Intact, Mandible: Intact
�� CN VII: Facial movement: Symmetric
�� CN VIII: Hearing: Normal
�� CN IX/X: Speech & swallow: Normal, Position of Uvula: Midline
�� CN XI: Shoulder shrug: Symmetric
�� CN XII: Tongue protrusion: Midline
Sensory:
�� Light touch: Intact in bilateral upper and lower extremities
Reflexes:
�� Biceps: 2+ bilaterally
�� Brachioradialis: 2+ bilaterally
�� Triceps: 2+ bilaterally
�� Patellar: 3+ right, 2+ left
�� Achilles: 3+ right, 2+ left
�� Babinski: Down going bilaterally
�� Clonus: Few beats right ankle
�� Coral: Negative bilaterally
Cerebellar: Dysmetria/Ataxia: None
Musculoskeletal:Motor: (Manual muscle scale 0-5)
Muscle SA EF WE EE FF FA HF KE DF EHL PF
Right� 5 5 5 5 5 5 5 5 5 5 5
Left 5 5 5 5 5 5 5 5 5 5 5
Tone: Normal in all extremities
Range of Motion: Passively within normal limits in all extremities
Lab Results
Laboratory Data
08/18/23 11:09
08/19/23 03:04
Total Bilirubin 0.5 mg/dl (0.2-1.3) 08/18/23 11:09
AST 25 U/L (14-36) 08/18/23 11:09
ALT 22 U/L (0-35) 08/18/23 11:09
Alkaline Phosphatase 76 U/L (38-126) 08/18/23 11:09
Total Protein 6.1 g/dl (6.3-8.2) L 08/18/23 11:09
Albumin 3.7 g/dl (3.5-5.0) 08/18/23 11:09
Diagnostic Results: as per HPI
Assessment
37-year-old right-handed F PMH (essential HTN) with 08/18/2023 right upper extremity weakness from the left pontine infarct with uncontrolled hypertension causing ADL and ambulatory dysfunction.
Plan
CVA: Secondary prophylaxis with aspirin/Plavix for 21 days per neurology, statin, and blood pressure control (SBP less than 180 and diastolic less than 100 to participate with therapy for ischemic stroke). Continue to monitor neurologic status.
-Currently with no noticeable deficits. Reviewed stroke prevention and need for follow-up with PCP and cardiology.
HTN: Medications per primary team, monitor closely. Had extensive discussion about high blood pressure and nondistended feeling sick with high blood pressure but damage is being done to multiple organ systems. Provided education, reinforced need
for constant monitoring. She does have a monitor at home. She will resume care with her primary care provider and supervisor cab.
FEN: Low-cholesterol diet
Psych: Psychology consult.� Monitor mood, medications as needed.
Pain: acetaminophen as needed.
Bowel: monitor bowels, medications as needed
Bladder: monitor urine output
Tobacco Abuse: Smoking cessation counseling. Need to find out why smoking whether it is nicotine withdrawal, habit, or oral fixation. Discussed at length. She has tried Chantix and nicotine replacement without benefit.
GI Prophylaxis: Pantoprazole
DVT Prophylaxis: Mechanical and Lovenox.
Pulmonary: Incentive spirometry
Safety: Continue to reinforce assistance with all transfers.
Code Status:� Full code
Dispo (date/plan/equipment needs): Home with family care.
Functional and Medical Goals: Modified Independent with ADL�s, ambulation, transfers
Discharge Destination: Home
A total of 50 minutes were spent with the patient preparing for the evaluation, obtaining history, performing examination and evaluation, counseling, data review, case management, care coordination, border measurer, and EMR documentation.
Thank you for allowing me to care for your patient. Please contact me with any questions or concerns.
--- NOTE | 2023-08-19 09:47 | PTOTSP ---
Patient independent with all mobility, no focal deficits at this time and feels everything has improved since admission. No skilled PT needs, will sign off.
--- NOTE | 2023-08-19 09:48 | W.PN.HOSP.TC ---
Today's Communication/Plan
-
see bold
Assessment / Plan
Assessment / Plan
Pt seen and examined with nurse Lisa Heath present at bedside:
Gen: NAD, AAOx3.
Eyes: EOMI, PERRLA, no scleral icterus.
Neck: supple.
CV: RRR, +S1/S2, no m/r/g.
Resp: CTAB, no rales, wheezes, or rhonchi.
Abd: +BS, soft, NT, ND
Skin: No rashes.
Neuro: CN 2-12 intact, non-focal.
Psych: Normal mood and affect.
CT Brain: No acute intracranial abnormality.
MRI brain: Acute nonhemorrhagic infarct in the left lateral cassi.
MRA head: Normal MRA of the cahto of [place].
MRA neck: Normal MRA of the neck.
Echo: Normal LV size with mildly reduced systolic function.
LVEF is 45% by Stewart's method of discs.
Mild concentric LVH.
Normal right ventricular size and function.
No significant valvular disease.
Not a complete echocardiogram given emesis occurred during study.
Compared to prior on January 08, 2017, LV function is now mildly reduced. It
was previously normal.
Hypertensive emergency:
-Nicardipine drip started in the ER but then stopped when the patient had what was likely a vasovagal episode
-goal SBP 140-180 today
-start Procardia XL 30mg daily
-echo above, notable for EF 45%, likely hypertensive cardiomyopathy
-cardiology following
RUE weakness due to acute nonhemorrhagic infarct in the left lateral cassi due to hypertensive emergency (POA):
-imaging above
-ASA/Plavix through 09/07/23 then ASA alone
-cont statin
-neuro following
Marijuana use
Multiple family members updated at bedside.
FULL/Lovenox
Total time spent on today's encounter was 50 minutes which included time spent in counseling the patient/family regarding diagnosis and treatment plan as listed above, goals of care, and symptom management. Case was discussed with nursing staff,
specialists, and care coordinators/case management. All labs and imaging personally reviewed by me. Remainder the time spent in detailed review of previous records, lab data, imaging, and other medical provider documentation.
Anticipated Discharge: 24 - 48 hours
Subjective/Interval History
-
Date of Service: August 19, 2023
Denies CP/SOB. RUE weakness has resolved.
Objective Data
-
Labs:
Laboratory Results
08/19/23
03:04
Sodium 137
Potassium 3.7
Chloride 105
Carbon Dioxide 22
BUN 16
Creatinine 0.9
Glucose 89
Calcium 9.6
Vital Signs:
Vital Signs
Temp Pulse Resp BP Pulse Ox
98.7 F 78 22 173/124 96
08/19/23 07:32 08/19/23 06:26 08/19/23 06:26 08/19/23 06:26 08/19/23 06:26
I&O
08/18/23 08/19/23 08/20/23
06:59 06:59 06:59
Intake Total 480 / 480
Balance 480 / 480
--- NOTE | 2023-08-19 09:55 | PTOTSP ---
ST Acute Care Evaluation
Pt presents with functional oral, pharyngeal, and esophageal parameters for safe PO intake of all consistencies. No overt s/s of penetration or aspiration observed at bedside with the consistencies trialed and listed above.
Pt demonstrates cognitive linguistic function that is within normal limits for her age and education.
Recommendations:
- Continue with regular solids, thin liquids, & meds as tolerated.
- ABRASIVE BAND WINDER to sign off, as pt does not demonstrate needs for any skilled ABRASIVE BAND WINDER services at this time.
[2023-08-19] MEDS: PROCARDIA XL (EXTENDED RELEASE) 30 MG PO (10:02)
--- NOTE | 2023-08-19 10:21 | W.PN.CD ---
Today's Communication / Plan
-
Coreg 3.125 bid
Entresto
additions today
Ischemic eval outpt once BP improved
Impression / Plan
-
37 y/o female with HTN and tobacco abuse who is here for evaluation after she noted right arm and leg weakness starting on Wednesday, and general unwell feeling. BP was elevated 180/140 on home check per chart, we are consulted for HTN.
Hypertensive emergency:
-Nifedipine started
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
- She says she is finished breast feeding, so above should be OK
Right-sided weakness:
-patient noticing improvement
-likely stroke per neuro
-ASA, Plavix started, lipids and hgbA1C pending
-MRI is pending
LBBB:
-new
-check echo
-follow telemetry
Tobacco abuse:
-recommend cessation
Subjective: feels better overall, BP stil lelevated
TTE:CONCLUSIONS
Normal LV size with mildly reduced systolic function.
LVEF is 45% by Stewart's method of discs.
Mild concentric LVH.
Normal right ventricular size and function.
No significant valvular disease.
Not a complete echocardiogram given emesis occurred during study.
Compared to prior on January 08, 2017, LV function is now mildly reduced. It
was previously normal.
Physical Exam
Vital Signs/Labs
Vital Signs
Temp Pulse Resp BP Pulse Ox
98.7 F 87 22 180/122 96
08/19/23 07:32 08/19/23 10:02 08/19/23 06:26 08/19/23 10:02 08/19/23 06:26
08/18/23 08/19/23 08/20/23
06:59 06:59 06:59
Actual Weight 114 lb 10.246 oz
08/18/23 11:09
08/19/23 03:04
Triglycerides 154 mg/dl (10-149) H 08/19/23 03:04
LDL Cholesterol, Calc 122 mg/dl 08/19/23 03:04
VLDL Cholesterol, Calc 30 mg/dl (0-30) 08/19/23 03:04
HDL Cholesterol 38 mg/dl 08/19/23 03:04
LAB Results
08/18/23
11:09
Troponin I 0.030
Physical Exam
Constitutional: No acute distress
EENT: Anicteric
Cardiovascular: Rhythm & rate is regular and Pedal edema is absent
Respiratory: Respiratory effort normal and Lungs clear to auscul.
GI: Soft
Neuro/Psych: AO x 3
Data Reviewed
-
Date of Service: August 19, 2023
Medical Decision Making: Reviewed Test Results
EKG: Tracing Personally Visualized and interpreted (sr)
Echo: Tracing Personally Visualized and interpreted and Report Reviewed by me
Labs: Labs Reviewed by me
--- NOTE | 2023-08-19 10:31 | PTCARENOTE ---
Addendum entered by Jamison Al RN 08/19/23 19:10:
Educated patient about medications interacting with . Patient stated again that she will stop now.
Original Note:
Patient AAOx4. NIHSS 0 this morning. Patient with no complaints, eager to get home to her kids. BPs elevated. See mar. All other VSS. Discussed cigarette and marijuana smoking cessation with patient. Patient reports that she breast feeds her 3yo at
bedtime, offered pump, patient declined, states no discomfort and plans to stop when goes home. Patient making needs known, family visiting. Continuing to closely monitor.
[2023-08-19 12:02] LABS: Glycohemoglobin (HgbA1c) 5.4 % (4.0-5.6)
--- NOTE | 2023-08-19 12:56 | CM ---
Patient with Dx Hypertensive emergency, Right-sided weakness, new LBBB. PT & OT Evals; No skilled PT/OT needed.
Met with patient, 2 sons & 1 daughter and her SO;
the patient resides with her parents and her 5 children in a split level house.
She has been independent in ADLs and ambulation.
The patient states that she felt off-balance from Mon-Wed this week and had right arm weakness that has resolved.
DME - breast pump (currently breast feeding 3 yr old child, plans to stop soon), BP machine
Prior [facility] after childbirth
PCP - Sabino Davis
Pharmacy - wants to switch to [facility]
CM Consult:
Connor check Entresto BID
Spoke with pharmacist, MILEY in [facility]; totally covered by her [employer] insurance- no copay.
Patient informed she would have no cost for Entresto.
No CM d/c planning needs identified.
Plan home.
[2023-08-19] MEDS: COREG 3.125 MG PO ×2 (14:03→20:04)
[2023-08-19] MEDS: LIPITOR 20 MG PO (17:53)
[2023-08-19] MEDS: NICODERM TRANSDERMAL 14 MG TRANSDERM (17:53)
[2023-08-19] MEDS: LOVENOX 40 MG SC (17:53)
[2023-08-19] MEDS: ENTRESTO 24 MG/26 MG 1 TAB PO (20:04)
--- NOTE | 2023-08-19 23:06 | PTCARENOTE ---
GISSELLE Garcia notified for pt BP 170/115, per reports keep SBP 140-180 and DBP <100, IV hydralazine ordered x1 (see MAR).
[2023-08-20] VITALS (37 sets, daily range): BP systolic 105–177; BP diastolic 76–141
--- NOTE | 2023-08-20 03:47 | PTCARENOTE ---
Pt walked into the bathroom got back to bed felt dizzy, lightheaded, diaphoretic and nauseous. HR 60s-70s BP 132/110. GISSELLE Garcia notified. AM labs done. Will recheck VS in an hour.
[2023-08-20 04:11] LABS: Blood Urea Nitrogen 15 mg/dl (7-17); Calcium 9.5 mg/dl (8.4-10.2); Carbon Dioxide 21 mmol/L (22-30); Chloride 106 mmol/L (98-107); Estimated Creatinine Clearance 89 ml/min; Glucose 114 mg/dl (70-99); Potassium 3.3 mmol/L (3.5-5.1); Sodium 136 mmol/L (135-145); eGFR > 60.00
[2023-08-20 04:29] LABS: Hematocrit 42.8 % (37.0-47.0); Hemoglobin 14.3 g/dL (12.0-16.0); Mean Corp Hgb Conc. 33.4 g/dL (33.0-37.0); Mean Corpuscular Hgb 23.2 pg (27.0-31.0); Mean Corpuscular Volume 69.5 fL (81.0-99.0); Mean Platelet Volume 9.8 fL (7.4-10.4); Platelet Count 527 10^3/uL (130-400); Red Blood Cell Count 6.16 10^6/uL (4.20-5.40); Red Cell Dist. Width 18.7 % (11.5-14.5)
[2023-08-20] MEDS: KCL 20 MEQ PO (04:32)
--- NOTE | 2023-08-20 07:30 | W.PN.NEURO.1 ---
Today's Communication / Plan
-
Goal of normotension
Dual antiplatelet therapy with end date for clopidogrel of September 07, 2023 then lifelong aspirin
Atorvastatin 20 mg daily
Neuro Assessment/Plan
Assessment
37 year old woman with tobacco use and uncontrolled hypertension presenting to hospital with extreme hypertension, right arm and leg weakness of 2 day duration.
MRI brain demonstrates acute ischemic stroke in the left side of the cassi explaining her symptoms
MRA head and neck no significant large vessel stenosis or atherosclerosis seen in vertebral or basilar artery supply to cassi, no significant carotid disease
TTE was limited but no thrombus, normal chamber size, mildly decreased systolic function
Stroke etiology is presumed due to small vessel disease risk factors of tobacco use and longstanding untreated hypertension
Plan
Goal of normotension
Dual antiplatelet therapy with end date for clopidogrel of September 07, 2023 then lifelong aspirin
Atorvastatin 20 mg daily
Will follow as needed.
Subjective/Objective
Subjective Data
Date of Service: August 20, 2023
Objective Data
Vital Signs
Temp Pulse Resp BP Pulse Ox
36.7 C 76 17 160/109 93
08/20/23 03:29 08/20/23 06:10 08/20/23 06:10 08/20/23 06:10 08/20/23 06:10
Lab Results
08/20/23 03:40
08/20/23 03:40
Sodium 136 mmol/L (135-145) 08/20/23 03:40
Potassium 3.3 mmol/L (3.5-5.1) L 08/20/23 03:40
BUN 15 mg/dl (7-17) 08/20/23 03:40
Glucose 114 mg/dl (70-99) H 08/20/23 03:40
Calcium 9.5 mg/dl (8.4-10.2) 08/20/23 03:40
LDL Cholesterol, Calc 122 mg/dl 08/19/23 03:04
Ur Buprenorphine Negative (Negative) 08/18/23 18:30
Patient Allergies
No Known Allergies Allergy (Verified 08/18/23 10:46)
Data Reviewed
-
MRI Head: Report Reviewed and Image Reviewed
Labs: Report Reviewed
Lipid Profile: Report Reviewed
Reviewed with: Physician
Old Records: Summarized
Past History
Past History
ED Past Medical History: CVA (left side of the cassi) and HTN
ED Past Surgical History: Gynecological
Social History
Tobacco: Smoker
Alcohol: None
Drug: None
Personal: Single
Living: with family
Family History
Family History: Other (reviewed and non-contributory)
Medications
-
Medications:
Generic Name Dose Route Start Last Admin
Trade Name Freq PRN Reason Stop Dose Admin
Acetaminophen 650 mg 08/18/23 16:08
Acetaminophen 650 Mg Rectal Suppository RECTAL 09/15/23 16:07
Q4HPRN PRN
MATOS, mild pain, or temp >100.4F
Acetaminophen 650 mg 08/18/23 16:08
Acetaminophen 325 Mg Tablet PO 09/15/23 16:07
Q4HPRN PRN
MATOS, mild pain, or temp >100.4F
Aspirin 81 mg 08/19/23 08:00 08/19/23 07:09
Aspirin 81 Mg (Enteric Coated) Tablet PO 09/16/23 07:59 81 mg
DAILY CONNOR Administration
Atorvastatin Calcium 20 mg 08/19/23 18:00 08/19/23 17:53
Atorvastatin (Lipitor) 20 Mg Tablet PO 09/16/23 17:59 20 mg
QPM CONNOR Administration
Carvedilol 3.125 mg 08/19/23 13:00 08/19/23 20:04
Carvedilol 3.125 Mg Tablet PO 09/16/23 12:59 3.125 mg
BID CONNOR Administration
Clopidogrel Bisulfate 75 mg 08/19/23 08:00 08/19/23 07:09
Clopidogrel 75 Mg Tablet PO 09/08/23 08:01 75 mg
DAILY CONNOR Administration
Enoxaparin Sodium 40 mg 08/18/23 18:00 08/19/23 17:53
Enoxaparin Sodium 40 Mg/0.4 Ml Syringe SC 09/15/23 17:59 40 mg
QPM CONNOR Administration
Nicotine 14 mg 08/19/23 18:00 08/19/23 17:53
Nicotine 14 Mg Patch TRANSDERM 09/16/23 17:59 14 mg
DAILY CONNOR Administration
Nifedipine 30 mg 08/19/23 10:00 08/19/23 10:02
Nifedipine 30 Mg Extended Release Tablet PO 09/16/23 09:59 30 mg
DAILY CONNOR Administration
Sacubitril/Valsartan 1 tab 08/19/23 20:00 08/19/23 20:04
Sacubitril 24 Mg/Valsartan 26 Mg (Entresto) Tab PO 09/16/23 19:59 1 tab
BID CONNOR Administration
Sodium Chloride 0 flush 08/18/23 17:00
Sodium Chloride 0.9% (Flush) Syringe IV 09/15/23 16:59
PER PROTOCOL CONNOR
[2023-08-20] MEDS: COREG 6.25 MG PO ×2 (08:33→19:43)
[2023-08-20] MEDS: ASPIR LOW (ENTERIC COATED) 81 MG PO (08:33)
[2023-08-20] MEDS: PLAVIX 75 MG PO (08:34)
[2023-08-20] MEDS: ALDACTONE 25 MG PO (08:34)
[2023-08-20] MEDS: NICODERM TRANSDERMAL 14 MG TRANSDERM (08:34)
[2023-08-20] MEDS: ENTRESTO 24 MG/26 MG 1 TAB PO ×2 (08:34→19:41)
[2023-08-20] MEDS: COREG PO (08:36)
[2023-08-20] MEDS: PROCARDIA XL (EXTENDED RELEASE) PO (08:36)
--- NOTE | 2023-08-20 08:42 | W.PN.CD ---
Today's Communication / Plan
-
-Continue Entresto.
-Will increase Coreg to 6.25 mg twice daily.
-Will start spironolactone (hypokalemia).
-Will start Jardiance.
-Will discontinue nifedipine (no benefit in CHF).
-Eventual outpatient ischemic evaluation.
Impression / Plan
-
37 y/o female (known to Dr. Sanchez, her primary Cartridge Gauger) with HTN and tobacco abuse who is here for evaluation after she noted right arm and leg weakness starting on Wednesday, and general unwell feeling. BP was elevated 180/140 on home check
per chart, we are consulted for HTN. Found to have an acute left-sided CVA.
Hypertensive emergency/acute CVA:
-Patient needs adequate blood pressure control as outlined below.
-Continue aspirin/Plavix for ~2 more weeks, as per Neurology, then aspirin indefinitely.
- She says she is finished breast feeding, so above should be OK
-Continue atorvastatin.
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
-Compensated on examination.
-Most likely secondary to chronic uncontrolled hypertension (last evaluated by Cardiology 3 years ago).
-Continue Entresto.
-Will increase Coreg to 6.25 mg twice daily.
-Will start spironolactone (hypokalemia).
-Will start Jardiance.
-Will discontinue nifedipine (no benefit in CHF).
-Eventual outpatient ischemic evaluation.
LBBB:
-new
-New cardiomyopathy as above.
-Outpatient ischemic evaluation.
Tobacco abuse:
-Counseled today on the importance of smoking cessation.
Subjective: No major events overnight. No cardiac complaints this a.m.
TTE:CONCLUSIONS
Normal LV size with mildly reduced systolic function.
LVEF is 45% by Stewart's method of discs.
Mild concentric LVH.
Normal right ventricular size and function.
No significant valvular disease.
Not a complete echocardiogram given emesis occurred during study.
Compared to prior on January 08, 2017, LV function is now mildly reduced. It
was previously normal.
Physical Exam
Vital Signs/Labs
Vital Signs
Temp Pulse Resp BP Pulse Ox
98.1 F 95 17 167/115 93
08/20/23 07:15 08/20/23 08:33 08/20/23 06:10 08/20/23 08:33 08/20/23 06:10
08/19/23 08/20/23 08/21/23
06:59 06:59 06:59
Actual Weight 52 kg
08/20/23 03:40
08/20/23 03:40
Magnesium Cancelled 08/19/23 10:49
Triglycerides 154 mg/dl (10-149) H 08/19/23 03:04
LDL Cholesterol, Calc 122 mg/dl 08/19/23 03:04
VLDL Cholesterol, Calc 30 mg/dl (0-30) 08/19/23 03:04
HDL Cholesterol 38 mg/dl 08/19/23 03:04
LAB Results
08/18/23
11:09
Troponin I 0.030
Physical Exam
Constitutional: No acute distress and Comfortable
EENT: Anicteric
Cardiovascular: Rhythm & rate is regular, Pedal edema is absent, Systolic murmur absent and S1S2 is normal
Respiratory: Respiratory effort normal and Lungs clear to auscul.
GI: Soft
Neuro/Psych: AO x 3
Other: Skin (Warm, dry, intact)
Data Reviewed
-
Date of Service: August 20, 2023
EKG: Tracing Personally Visualized and interpreted (Telemetry: Sinus rhythm)
Echo: Tracing Personally Visualized and interpreted (EF 45-50%)
Medical Tests (PFT, Pathology etc): Discussed with Nurse and Discussed with Patient
Labs: Labs Reviewed by me
--- NOTE | 2023-08-20 09:01 | W.PN.HOSP.TC ---
Today's Communication/Plan
-
see bold
Assessment / Plan
Assessment / Plan
Pt seen and examined with nurse Maci Tinoco present at bedside:
Gen: NAD, AAOx3.
Eyes: EOMI, PERRLA, no scleral icterus.
Neck: supple.
CV: remains RRR, +S1/S2, no m/r/g.
Resp: remains CTAB, no rales, wheezes, or rhonchi.
Abd: +BS, soft, NT, ND
Skin: No rashes.
Neuro: remains CN 2-12 intact, non-focal.
Psych: Normal mood and affect.
CT Brain: No acute intracranial abnormality.
MRI brain: Acute nonhemorrhagic infarct in the left lateral cassi.
MRA head: Normal MRA of the [place].
MRA neck: Normal MRA of the neck.
Echo: Normal LV size with mildly reduced systolic function.
LVEF is 45% by Stewart's method of discs.
Mild concentric LVH.
Normal right ventricular size and function.
No significant valvular disease.
Not a complete echocardiogram given emesis occurred during study.
Compared to prior on January 08, 2017, LV function is now mildly reduced. It
was previously normal.
Hypertensive emergency:
-Nicardipine drip started in the ER but then stopped when the patient had what was likely a vasovagal episode
-goal now is normotension
-echo above, notable for EF 45%, likely hypertensive cardiomyopathy/chronic HFrEF
-cardiology following
-cont GDMT: Entresto/Aldactone/Coreg/Jardiance
-IV Hydralazine PRN
-follow BPs through today with new meds/doses. May need to make adjustments this afternoon.
RUE weakness due to acute nonhemorrhagic infarct in the left lateral cassi due to hypertensive emergency (POA):
-imaging above
-ASA/Plavix through 09/07/23 then ASA alone
-cont statin
-neuro following
Marijuana use
FULL/Lovenox
Anticipated Discharge: 24 - 48 hours
Subjective/Interval History
-
Date of Service: August 20, 2023
No new complaints.
Objective Data
-
Labs:
Laboratory Results
08/20/23
03:40
WBC 10.0
Hgb 14.3
Hct 42.8
Plt Count 527 H
Sodium 136
Potassium 3.3 L
Chloride 106
Carbon Dioxide 21 L
BUN 15
Creatinine 0.7
Glucose 114 H
Calcium 9.5
Vital Signs:
Vital Signs
Temp Pulse Resp BP Pulse Ox
98.1 F 95 17 167/115 93
08/20/23 07:15 08/20/23 08:33 08/20/23 06:10 08/20/23 08:33 08/20/23 06:10
I&O
08/19/23 08/20/23 08/21/23
06:59 06:59 06:59
Intake Total 480 / 480 410 / 410
Balance 480 / 480 410 / 410
[2023-08-20] MEDS: JARDIANCE 10 MG PO (09:26)
--- NOTE | 2023-08-20 10:59 | PTCARENOTE ---
Pt rec'd from previous RN, no c/o pain, anxious to be discharged home when able. Pt with no neuro deficits this am, NIHSS 0. Pt remains hypertensive, medications adjusted per supply chain design manager Dr. Aviles and plan also discussed with attending Dr. Newell.
Orders rec'd for PRN Hydralazine, will dose after 11 am VS if pt cont with HTN. Pt verbalized understanding of the importance of smoking cessation, med adherance, stated she saw her grandmother of similar medical conditions and does not want the
same for herself. Pt is pleasant and cooperative, asking questions re: potential dental work needed in the future-encouraged pt to discuss her medications with her dentist prior to any procedure.
Pt assisted to bathroom and seated oob in chair at this time, no dizziness or lightheadedness reported. Safe environment maintained.
[2023-08-20] MEDS: APRESOLINE 10 MG IV ×3 (11:08→20:37)
--- NOTE | 2023-08-20 12:22 | PTCARENOTE ---
PRN Hydralazine administered at 11:08 with +response, follow up BP 138/93.
--- NOTE | 2023-08-20 16:10 | PTCARENOTE ---
2nd dose PRN Hydralazine given at 15:11, BP 156/101 currently. New PIV site placed by HEAVEN RN per pt request, RAC was burning her with Hydralazine dose.
[2023-08-20] MEDS: TYLENOL 650 MG PO ×2 (16:54→23:50)
[2023-08-20] MEDS: LIPITOR 20 MG PO (17:11)
[2023-08-20] MEDS: LOVENOX 40 MG SC (17:11)
--- NOTE | 2023-08-20 17:35 | PTCARENOTE ---
Pt ambulated to bathroom and back to bed, c/o feeling breathless and noticing her heart 'pounding' -ST on tele to 122 with activity, recovered to 90s with rest. Pt c/o feeling 'off' and generally unwell. TT sent to cross coverage Dr. Cosby, he will
observe and continue with attending's current medical recommendations at this time. Pt updated, emotional support provided.
[2023-08-21] VITALS (16 sets, daily range): BP systolic 118–158; BP diastolic 80–115; BMI 19.6
--- NOTE | 2023-08-21 01:10 | PTCARENOTE ---
Pt reported headache, Tylenol given. Reassessment pt appears to be sleeping comfortably, respiration even and unlabored vitals stable at this time. Pt having better BP through out night. Assessment care and vitals as charted.
[2023-08-21] MEDS: ASPIR LOW (ENTERIC COATED) 81 MG PO (09:27)
[2023-08-21] MEDS: ALDACTONE 25 MG PO (09:27)
[2023-08-21] MEDS: JARDIANCE 10 MG PO (09:28)
[2023-08-21] MEDS: COREG 6.25 MG PO ×2 (09:28→10:38)
[2023-08-21] MEDS: ENTRESTO 24 MG/26 MG 1 TAB PO (09:28)
[2023-08-21] MEDS: PLAVIX 75 MG PO (09:29)
[2023-08-21] MEDS: NICODERM TRANSDERMAL 14 MG TRANSDERM (09:29)
--- NOTE | 2023-08-21 09:46 | W.PN.HOSP.TC ---
Today's Communication/Plan
-
d/c
Assessment / Plan
Assessment / Plan
Pt seen and examined with nurse Shruti Beasley present at bedside:
Gen: NAD, AAOx3.
Eyes: EOMI, PERRLA, no scleral icterus.
Neck: supple.
CV: continues to remain RRR, +S1/S2, no m/r/g.
Resp: continues to remain CTAB, no rales, wheezes, or rhonchi.
Abd: +BS, soft, NT, ND
Skin: No rashes.
Neuro: continues to remain CN 2-12 intact, non-focal.
Psych: Normal mood and affect.
CT Brain: No acute intracranial abnormality.
MRI brain: Acute nonhemorrhagic infarct in the left lateral cassi.
MRA head: Normal MRA of the [place].
MRA neck: Normal MRA of the neck.
Echo: Normal LV size with mildly reduced systolic function.
LVEF is 45% by Stewart's method of discs.
Mild concentric LVH.
Normal right ventricular size and function.
No significant valvular disease.
Not a complete echocardiogram given emesis occurred during study.
Compared to prior on January 08, 2017, LV function is now mildly reduced. It
was previously normal.
Hypertensive emergency:
-Nicardipine drip started in the ER but then stopped when the patient had what was likely a vasovagal episode
-goal now is normotension
-echo above, notable for EF 45%, likely hypertensive cardiomyopathy/chronic HFrEF
-cardiology following
-cont GDMT: Entresto/Aldactone/Coreg/Jardiance
-IV Hydralazine PRN (3 doses of 10mg IV on 08/20/23)
-increase Coreg
RUE weakness due to acute nonhemorrhagic infarct in the left lateral cassi due to hypertensive emergency (POA):
-imaging above
-ASA/Plavix through 09/07/23 then ASA alone
-cont statin
-neuro following
Marijuana use
FULL/Lovenox
Case discussed with cardiology. Patient is medically cleared for discharge.
Total time spent on d/c = 33 min. This included today's physical exam, progress note, review of laboratory and diagnostic data, preparation of discharge documents and prescriptions, and discussions about the pt's hospital course and discharge plan
with the patient and other medical office assistant instructor involved in the patient's care.
Anticipated Discharge: Today
Subjective/Interval History
-
Date of Service: August 21, 2023
No new complaints.
Objective Data
-
Labs:
Laboratory Results
08/21/23
08:32
Sodium Pending
Potassium Pending
Chloride Pending
Carbon Dioxide Pending
BUN Pending
Creatinine Pending
Glucose Pending
Calcium Pending
Vital Signs:
Vital Signs
Temp Pulse Resp BP Pulse Ox
98.3 F 98 21 135/105 97
08/21/23 07:50 08/21/23 09:27 08/21/23 08:00 08/21/23 09:27 08/21/23 08:00
I&O
08/20/23 08/21/23 08/22/23
06:59 06:59 06:59
Intake Total 410 / 410 1680 / 1680
Balance 410 / 410 1680 / 1680
--- NOTE | 2023-08-21 09:55 | W.PN.CD ---
Today's Communication / Plan
-
increase coreg
cont other meds
Outpt uptitration of Entresto to mod dose
Outpatient exercise nuc.
OK to d/c
Impression / Plan
-
37 y/o female (known to Dr. Sanchez, her primary Cyber Operator) with HTN and tobacco abuse who is here for evaluation after she noted right arm and leg weakness starting on Wednesday, and general unwell feeling. BP was elevated 180/140 on home check
per chart, we are consulted for HTN. Found to have an acute left-sided CVA.
Hypertensive emergency/acute CVA:
-Patient needs adequate blood pressure control as outlined below.
-Continue aspirin/Plavix for ~2 more weeks, as per Neurology, then aspirin indefinitely.
- She says she is finished breast feeding, so above should be OK
-Continue atorvastatin.
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
-Compensated on examination.
-Most likely secondary to chronic uncontrolled hypertension (last evaluated by Cardiology 3 years ago).
-Continue Entresto.
-Will increase Coreg to 12.5 mg twice daily.
-cont start spironolactone (hypokalemia).
-cont start Jardiance.
-Will discontinue nifedipine (no benefit in CHF).
-Eventual outpatient ischemic evaluation.
LBBB:
-new
-New cardiomyopathy as above.
-Outpatient ischemic evaluation.
Tobacco abuse:
-Counseled today on the importance of smoking cessation.
Subjective: No major events overnight. No cardiac complaints this a.m.
TTE:CONCLUSIONS
Normal LV size with mildly reduced systolic function.
LVEF is 45% by Stewart's method of discs.
Mild concentric LVH.
Normal right ventricular size and function.
No significant valvular disease.
Not a complete echocardiogram given emesis occurred during study.
Compared to prior on January 08, 2017, LV function is now mildly reduced. It
was previously normal.
Physical Exam
Vital Signs/Labs
Vital Signs
Temp Pulse Resp BP Pulse Ox
98.3 F 98 21 135/105 97
08/21/23 07:50 08/21/23 09:27 08/21/23 08:00 08/21/23 09:27 08/21/23 08:00
08/20/23 08/21/23 08/22/23
06:59 06:59 06:59
Actual Weight 110 lb 14.28 oz
08/20/23 03:40
Magnesium Cancelled 08/19/23 10:49
Triglycerides 154 mg/dl (10-149) H 08/19/23 03:04
LDL Cholesterol, Calc 122 mg/dl 08/19/23 03:04
VLDL Cholesterol, Calc 30 mg/dl (0-30) 08/19/23 03:04
HDL Cholesterol 38 mg/dl 08/19/23 03:04
LAB Results
08/18/23
11:09
Troponin I 0.030
Physical Exam
Constitutional: No acute distress
EENT: Anicteric
Cardiovascular: Rhythm & rate is regular and Pedal edema is absent
Respiratory: Respiratory effort normal and Lungs clear to auscul.
GI: Soft
Neuro/Psych: AO x 3
Data Reviewed
-
Date of Service: August 21, 2023
Medical Decision Making: Reviewed Test Results
EKG: Tracing Personally Visualized and interpreted (sr)
Echo: Report Reviewed by me
Labs: Labs Reviewed by me
[2023-08-21] MEDS: APRESOLINE 10 MG IV (10:41)
[2023-08-21 11:16] LABS: Blood Urea Nitrogen 17 mg/dl (7-17); Calcium 9.8 mg/dl (8.4-10.2); Carbon Dioxide 18 mmol/L (22-30); Chloride 104 mmol/L (98-107); Estimated Creatinine Clearance 61 ml/min; Glucose 169 mg/dl (70-99); Sodium 134 mmol/L (135-145); eGFR > 60.00
--- NOTE | 2023-08-21 11:16 | PTCARENOTE ---
b/p 142/107 at 10am. pt sinus tachycardic to 120 with ambulation to bathroom at 0700. sinus rhtyhm with BB configuration at rest with rates in 80's. hydralazine 10 mg given IV at 1041. repeat b/p 134/96 at 1115. pt ambulated to bathroom 1130; heart
rate maintained in 80's at that time. NIHSS 0, neuro check without deficits. discharge instructions provided.
--- NOTE | 2023-08-21 11:45 | PTCARENOTE ---
potassium improved to 4.0 on BMP drawn this am. pt discharged home with significant other in stable condition
--- NOTE | 2023-08-21 14:29 | W.DCSUMMARY ---
Discharge Summary
Discharge Data
Date of Admission: 08/18/23
Date of Discharge: 08/21/23
-
Pending Results: No
Hospital Course
Primary diagnoses:
Acute nonhemorrhagic infarct in the left lateral cassi due to hypertensive emergency
Chronic heart failure with reduced ejection fraction
Secondary diagnoses:
Tobacco abuse disorder
Marijuana use
Consultants:
Cardiology
Neurology
Imaging:
CT Brain: No acute intracranial abnormality.
MRI brain: Acute nonhemorrhagic infarct in the left lateral cassi.
MRA head: Normal MRA of the [place].
MRA neck: Normal MRA of the neck.
Echo: Normal LV size with mildly reduced systolic function.
LVEF is 45% by Stewart's method of discs.
Mild concentric LVH.
Normal right ventricular size and function.
No significant valvular disease.
Not a complete echocardiogram given emesis occurred during study.
Compared to prior on January 08, 2017, LV function is now mildly reduced. It
was previously normal.
Hospital course: 37-year-old female who presented with chief complaint of right upper extremity weakness as outlined in HPI on admission. The patient had hypertensive emergency on admission. A Nicardipine drip was started in the ER but was then
stopped when the patient had hypotension due to what was likely a vasovagal episode. 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 Imaging above, notable for acute nonhemorrhagic infarct in the left lateral cassi.
While hospitalized the patient was started on Entresto/Aldactone/Coreg/Jardiance. For her acute stroke she was placed on ASA/Plavix through 09/07/23 then ASA alone. She was placed on statin. She was discharged in medically stable condition
Discharge Plan
-
Patient Disposition: Home (Routine Discharge)
Discharge Diagnosis/Procedures: Acute nonhemorrhagic infarct in the left lateral cassi due to hypertensive emergency
Condition: Good
Diet: Low Cholesterol and Low Sodium
Activity: No restrictions
Driving Restrictions: As prior to admission
Referrals:
Sabino Davis MD [Family Provider] - in less than 1 week
Amira Deleon CRNP [Specified Professional Personl] - 08/31/23 8:00 am
Prescriptions:
New
atorvastatin 20 mg Tablet
20 mg PO QPM Qty: 30 0RF
nicotine 14 mg/24 hr Patch 24 Hour
14 mg transdermal DAILY Qty: 0 0RF
clopidogrel 75 mg Tablet
75 mg PO DAILY Qty: 17 0RF
carvedilol [Coreg] 12.5 mg tablet
12.5 mg PO BID Qty: 60 0RF
Entresto 24-26 mg Tablet
1 tab PO BID Qty: 60 0RF
aspirin 81 mg Tablet,Delayed Release (Dr/Ec)
81 mg PO DAILY Qty: 0 0RF
spironolactone 25 mg Tablet
25 mg PO DAILY Qty: 30 0RF
Jardiance 10 mg Tablet
10 mg PO DAILY Qty: 30 0RF
Discontinued
acetaminophen [Tylenol Extra Strength] 500 mg Tablet
1,000 mg PO Q6HPRN PRN (Reason: mild pain)
Discharge Orders:
Discharge Patient (As Directed); Ordered 08/21/23
Ordered By: Melvin Newell
Discharge Date and Time
Discharge Date/Time: 08/21/23 11:58
Print Language: ZAMBIAN
== END 2023-08-21 11:58 | disposition home or self-care (01) | DRG 64 ==
LOC: IMU 14:29
PROVIDERS: Nurse Practitioner; Nurse Practitioner Gerontology; ADMITTING PHYSICIAN Internal Medicine; CONSULT PHYSICIAN Physical Medicine & Rehabilitation; CONSULT PHYSICIAN Student in an Organized Health Care Education/Training Program; EMERGENCY PHYSICIAN Emergency Medicine; FAMILY PHYSICIAN Family Medicine; OTHER PHYSICIAN Internal Medicine Cardiovascular Disease
DX: I63.89 Other cerebral infarction (principal); I50.23 Acute on chronic systolic (congestive) heart failure; G81.91 Hemiplegia, unspecified affecting right dominant side; I16.1 Hypertensive emergency; I42.9 Cardiomyopathy, unspecified; I11.0 Hypertensive heart disease with heart failure; E87.6 Hypokalemia; I73.9 Peripheral vascular disease, unspecified; F12.90 Cannabis use, unspecified, uncomplicated; F17.210 Nicotine dependence, cigarettes, uncomplicated; I95.9 Hypotension, unspecified; R11.10 Vomiting, unspecified; I44.7 Left bundle-branch block, unspecified; Z91.148 Patient's other noncompliance with medication regimen for other reason; Z86.73 Personal history of transient ischemic attack (TIA), and cerebral infarction without residual deficits; Z82.49 Family history of ischemic heart disease and other diseases of the circulatory system
CPT/HCPCS: 70450; 70544; 70548; 70551; 80048; 80053; 80061; 80306; 83036; 83735; 84484; 84703; 85025; 85027; 85379; 92523; 92610; 93005; 93306; 96365; 96366; 96375; 97161; 97166; 99291; 99406; A9585

== ENCOUNTER → 2023-09-14 07:41 | Outpatient (REF) | payer OTHER, SELFPAY | LOC: DHCBC/DCA 07:41 | PROVIDERS: ATTENDING PHYSICIAN Nurse Practitioner; FAMILY PHYSICIAN Family Medicine | DX: I42.9 Cardiomyopathy, unspecified (principal) | CPT/HCPCS: 78452; 93017; A9500; J2785 ==

== ENCOUNTER 2023-09-24 07:23 | Day surgery (SDC) | payer OTHER, SELFPAY ==
[2023-09-24] VITALS (15 sets, daily range): BP systolic 133–147; BP diastolic 78–95; BMI 21.5
[2023-09-24] MEDS: NSS 160 ML IV (08:10)
[2023-09-24 08:39] LABS: HCG, Urine Qualitative Screen Negative
--- NOTE | 2023-09-24 09:51 | ITS.CL.CATH ---
[facility] - Catheterization
Cardiac Catheterization
Procedure Report:
CARDIAC CATHETERIZATION REPORT
Date of Procedure: 09/24/2023
Referring: Calvin Napier MD
Indication: Systolic dysfunction with mildly abnormal stress test
HEMODYNAMIC DATA
AO: 144/86
LV: 144/8
LEFT VENTRICULOGRAPHY: Normal left ventricular wall motion with EF 58%
CORONARY ANGIOGRAPHY
Dominance: Right
Left Main: Normal
LAD: 20-30% ostial stenosis with otherwise mild luminal irregularities in the LAD system
Circumflex: Normal
RCA: Normal dominant vessel
RENAL ANGIOGRAPHY: Prior to the procedure we discussed her history of hypertension with onset age 20. She has had poorly controlled hypertension and recently had a CVA secondary to hypertension. I suggested we perform renal angiography
specifically to rule out fibromuscular dysplasia. The pigtail catheter was easily advanced to the abdominal aorta at the level of the renal arteries. Angiography suggested no FMD in the renal arteries which include a single left renal artery, a
main right renal artery and a smaller accessory upper pole right renal artery. There was however the suggestion on nonselective imaging of ostial stenosis of the main right renal artery. This was evaluated with selective injection of the main
right renal artery which did not confirm any significant ostial stenosis.
Closure Device: None-the procedure was performed via the right radial artery. The Haroon's test was normal prior to the procedure.
Radiation (mGy): 107
DAP (cm2.Gy): 13.4
Fluoroscopy time: 5.8 minutes
CONCLUSIONS
1: Systemic hypertension
2: Normal left ventricular wall motion with EF 58%
3. Very mild nonobstructive single-vessel CAD
4. No evidence of renal artery FMD or significant atherosclerotic obstruction
5. Recommend continuation of aspirin and statin with LDL target less than 70. The patient understands that blood pressure control is paramount for her to have a normal lifespan
Copy to: Calvin Napier MD, Sabino Davis MD
Vivek Naranjo MD, [facility], [facility]
--- NOTE | 2023-09-24 10:54 | PTCARENOTE ---
Patient arrived from [facility] with c/o 'black squiggly lines' in bilateral eyesight. NIH-0. Per [employer], increase fluids. Completed as ordered. At 1000 patient states her vision has resumed to normal. [employer] aware. Patient resting comfortably at this
time. verbalizes no needs at this time. Comfort measures provided.
== END 2023-09-24 12:53 | disposition home or self-care (01) ==
LOC: CATH 07:23
PROVIDERS: ATTENDING PHYSICIAN Internal Medicine Cardiovascular Disease; FAMILY PHYSICIAN Family Medicine; OTHER PHYSICIAN Internal Medicine Cardiovascular Disease
DX: I25.10 Atherosclerotic heart disease of native coronary artery without angina pectoris (principal); R94.39 Abnormal result of other cardiovascular function study; I10 Essential (primary) hypertension; Z86.73 Personal history of transient ischemic attack (TIA), and cerebral infarction without residual deficits; I44.7 Left bundle-branch block, unspecified; F17.210 Nicotine dependence, cigarettes, uncomplicated; Z79.82 Long term (current) use of aspirin; Z79.84 Long term (current) use of oral hypoglycemic drugs; Z79.01 Long term (current) use of anticoagulants
CPT/HCPCS: 36251; 81025; 93458; C1894; Q9967

== ENCOUNTER → 2023-11-10 09:19 | Outpatient (REF) | payer OTHER, SELFPAY | LOC: HWRCS 09:19 | PROVIDERS: ATTENDING PHYSICIAN Nurse Practitioner; FAMILY PHYSICIAN Family Medicine | DX: I42.8 Other cardiomyopathies (principal) | CPT/HCPCS: 93306 ==

== ENCOUNTER → 2025-03-07 10:23 | Outpatient (REF) | payer OTHER, SELFPAY | LOC: HWRCS 10:23 | PROVIDERS: ATTENDING PHYSICIAN Nurse Practitioner Gerontology; FAMILY PHYSICIAN Family Medicine | DX: I42.8 Other cardiomyopathies (principal); Z86.73 Personal history of transient ischemic attack (TIA), and cerebral infarction without residual deficits | CPT/HCPCS: 93306 ==